=== PATIENT | female | born 2000 | race African-American/Black ===

== ENCOUNTER 2020-07-13 09:35 | Outpatient (CLI) | payer BC, OTHER ==
[2020-07-13 16:41] LABS: SARS-CoV-2 MS2 Positive; SARS-CoV-2 N Gene Negative; SARS-CoV-2 S Gene Negative; SARS-CoV-2 by NAA Not Detected (NotDetected); SARS-CoV-2 orf1ab Negative
== END 2020-07-13 09:36 | disposition home or self-care (01) ==
LOC: LABSCS 09:35
PROVIDERS: ATTEND Physician Assistant
DX: Z20.828 Contact with and (suspected) exposure to other viral communicable diseases (principal)
CPT/HCPCS: 87635; U0003

== ENCOUNTER 2021-09-18 06:38 | Outpatient (CLI) | payer BC ==
[2021-09-18] MEDS ORDERED: Magnevist 469MG/ML 20 ML VIAL ONE (10:16)
== END 2021-09-18 06:39 | disposition home or self-care (01) ==
LOC: BICMRI 06:38
PROVIDERS: ATTEND Family Medicine
DX: R55 Syncope and collapse (principal)
CPT/HCPCS: 70553

== ENCOUNTER 2022-03-13 10:51 | Outpatient (CLI) | payer BC | END 2022-03-13 10:52 | disposition home or self-care (01) | LOC: BICULT 10:51 | PROVIDERS: ATTEND Physician Assistant | DX: D24.2 Benign neoplasm of left breast (principal) ==

== ENCOUNTER 2022-05-30 08:18 | Outpatient (CLI) | payer BC ==
[2022-05-30 10:04] LABS: Hemoglobin 12.4 g/dL (12.0-15.5); Mean Corpuscular HGB CONC 34.3 g/dL (32.0-36.0); Mean Corpuscular Hemoglobin 28.4 pg (27.0-33.0); Mean Corpuscular Volume 82.8 fl (81.6-98.3); Mean Platelet Volume 10.3 fl (7.4-10.4); Platelet Count 336 10x3/uL (150-450); RBC Distribution Width 11.8 % (11.5-14.5); Red Blood Cell (RBC) Count 4.36 10x6/uL (3.90-5.03)
[2022-05-30 10:20] LABS: BHCG - Serum Negative (NEGATIVE); Pregs Control Background? CLEAR/WHITE (CLR/WHITE); Pregs Control Bar Appear? YES (CONTROL BAR)
[2022-05-30 10:23] LABS: Anion Gap 12 mmol/L (10-20); BUN (Urea Nitrogen) 8 mg/dL (7.0-18.7); Calc. Creatinine Clearance 0 mL/min (70-130); Calcium 9.7 mg/dL (7.8-10.44); Carbon Dioxide 25 mmol/L (22-29); Chloride 106 mmol/L (98-107); Estimated GFR 82; Glucose 77 mg/dL (70-105); Potassium 4.2 mmol/L (3.5-5.1); Sodium 139 mmol/L (136-145)
== END 2022-05-30 08:19 | disposition home or self-care (01) ==
LOC: LABBT 08:18
PROVIDERS: ATTEND Specialist
DX: Z01.812 Encounter for preprocedural laboratory examination (principal); D24.9 Benign neoplasm of unspecified breast
CPT/HCPCS: 80048; 84703; 85027

== ENCOUNTER 2022-06-03 10:52 | Day surgery (SDC) | payer BC ==
[2022-06-02 09:49] VITALS: BMI 20.8
[2022-06-03] MEDS ORDERED: Ketorolac Tromethamine 30 MG/ML VIAL ONE (11:05)
[2022-06-03] MEDS ORDERED: Acetaminophen 500 MG TAB ONE (11:05)
[2022-06-03] MEDS ORDERED: Bupivacaine/Epinephrine 0.25% 30 ML VIAL ONE (12:10)
[2022-06-03] MEDS ORDERED: CEFAZOLIN 2 GM VIAL ONE (12:20)
[2022-06-03] MEDS ORDERED: Sodium Chloride 0.9% 100 ML ONE (12:20)
[2022-06-03] MEDS ORDERED: fentaNYL Citrate/PF 100 MCG/2 ML SYRINGE ONE (12:22)
[2022-06-03] MEDS ORDERED: Midazolam HCl 2 mg/2 ml Vial ONE (12:22)
[2022-06-03] MEDS ORDERED: Dexmedetomidine 200 MCG/2 ML VIAL ONE (12:22)
[2022-06-03] MEDS ORDERED: Rocuronium Bromide 10 MG/ML (10ML VIAL) ONE (12:30)
[2022-06-03] MEDS ORDERED: Glycopyrrolate 0.2 MG/ML 5 ML SYRINGE ONE (12:30)
[2022-06-03] MEDS ORDERED: Lidocaine 1% PF 5 ML VIAL ONE (12:30)
[2022-06-03] MEDS ORDERED: Dexamethasone 20 MG/5 ML VIAL ONE (12:30)
[2022-06-03] MEDS ORDERED: Phenylephrine 10 MG/ML VIAL ONE (12:30)
[2022-06-03] MEDS ORDERED: ePHEDrine 50 MG/ML VIAL ONE (12:30)
[2022-06-03] MEDS ORDERED: PROPOFOL 200 MG/20 ML VIAL ONE (12:30)
[2022-06-03] MEDS ORDERED: Ondansetron PF 4 MG/2 ML Vial ONE (12:30)
== END 2022-06-03 15:35 | disposition home or self-care (01) ==
LOC: SDC 10:52
PROVIDERS: ATTEND Specialist
PROC: 0HBU0ZZ Excision of Left Breast, Open Approach (ICD-10-PCS; principal; 2022-06-03)
DX: D24.2 Benign neoplasm of left breast (principal); Z86.16 Personal history of COVID-19; Z79.3 Long term (current) use of hormonal contraceptives; Z79.899 Other long term (current) drug therapy
CPT/HCPCS: 88307; C1713; J0690; J1100; J1885; J2250; J2370; J2405; J2704; J2710; J3490